=== PATIENT | female | born 1975 | race Caucasian/White ===

== ENCOUNTER 2019-08-23 12:56 | Observation (INO) | payer SELFPAY ==
--- NOTE | 2019-08-21 16:30 | PCM.HP.BLA ---
History and Physical Date of Admission: 08/22/19 Surgical History and Physical Sun Steinberg, a 44 year old female 8 0 0 0 8, presents for LAVH/BS on August 22, 2019 at 2:45. -- Menorrhagia, Submucous Fibroids -- Menorrhagia which began months ago, but worsened last menses. Sun claims it started with menses and has been present intermittantly for months. It occurs with menses. It is located in the vagina. Sun characterizes the quality no pain. Severity is moderate but now worsening. Associated signs and symptoms are Menorrhagia. Associated signs and symptoms are extreme hemorrhage now on Aygestin. Additional comments are: Hemorrhage on vacation Thursday; seen [facility] ER; transfer to [facility]. Additional comments are: u/s at [facility] showed 11 cm uterus and 4 cm submucous fibroid. MEDICATIONS HISTORY: ALLERGIES: No Known Drug Allergies Infections - Chicken pox childhood Illnesses - no serious past illnesses Hospitalizations - Childbirth Review of Systems: GENERAL - Denies fever, or chills SKIN - Denies skin changes EYES - Denies visual changes EARS - Denies difficulty hearing NOSE - Denies nasal congestion or bleeding MOUTH - Denies sore throat or difficulty swallowing NECK - Denies pain or swelling RESPIRATORY - Denies shortness of breath or wheezing CARDIOVASCULAR - Denies palpitations or chest pain GASTROINTESTINAL - Denies nausea, vomiting, diarrhea, constipation GENITOURINARY - Denies dysuria, frequency of urination, incontinence of urine MUSCULOSKELETAL - Denies joint or muscle pain NEUROLOGICAL - Denies localized numbness or weakness PSYCHIATRIC - Denies depression or anxiety ENDOCRINE - Denies heat or cold intolerance, weight loss or gain HEMATO-IMMUNOLOGIC - Denies excesive bleeding with cuts SOCIAL HISTORY: Alcohol Use - denies drinking Smoking - denies smoking Diet - no special diet Exercise - active Employer - Unemployed Illicit Drug Use - denies use of street drugs Sexual Activity - Spouse-Sig Other Name - Atlee Spouse-Sig Other Occupation - [employer] - NONE FAMILY HISTORY: ct MENSTRUAL HISTORY: LMP Known?- Yes Amount/Duration - 5 days, Regularity - Regular, Frequency - monthly days, LMP - 08/02/19 PAST PREGNANCIES: Total Pregnancies - 8; Full Term Pregnancies - 8; Premature - 0; Abortions, Induced - 0; Abortions, Spontaneous - 0; Ectopics - 0; Multiple Births - 0; Living Children - 8 SURGICAL HISTORY: 1. none PHYSICAL EXAM BP- 124/78 Sitting, Left arm, regular cuff Pulse- 74 Regular Weight- 147.87899 lbs Height- 63 inch BMI:26.09 Second BP:126/74 Sitting, Left arm, regular cuff CONSTITUTIONAL - NAD, well nourished, and well developed SKIN - No rash, lesions, or ulcers HEENT - Normocephalic, PERRLA, EOMI NECK - No nodes, no nuchal rigidity and thyroid normal size and texture LYMPH NODES - Palpation of lymph nodes in neck and groins within normal limits LUNGS - CTA x2 without wheezes, crackles or rales CARDIAC - Regular rate and rhythm without rubs, murmurs, or gallops BREAST - No dominant masses, no tenderness, no axillary adenopathy, no nipple discharge, no skin changes ABDOMEN - Without hepatosplenomegaly, distention, masses, rebound, or guarding; normal bowel sounds; no hernias EXTREMITIES - No edema or calf tenderness NEUROLOGICAL - Cranial nerves II-XII grossly intact PSYCHIATRIC - A and O to time, place, person, mood and affect External Genital Vagina - non-tender without lesions Urethra/Urethral Meatus - non-tender Bladder - non-tender Vagina - vaginal forbes are pink and moist without loss of rugae and no evidence of atropy Cervix - without cervical motion tenderness and has normal size and features without evident lesions and cervix protruded to within 3 cm of the vaginal introitus with abdominal push-down Uterus - enlarged uterus 8 wks, wt 125-150 g Adnexa - clear without massess or tenderness ASSESSMENT/PLAN: 1. Menorrhagia and Submucous Leiomyoma Of Uterus Discussed options for treatment including medical and surgical. Pt fearful of catastrophic episode like last weekend occurring again. Given this, will proceed with LAVH/BS. Discussed RBAs and all questions answered.
[2019-08-22] VITALS (10 sets, daily range): BP systolic 85–143; BP diastolic 47–78; PULSE 75–117; RESP 15–22; TEMP 36.6–37; O2SAT 93–100; BMI 26.2
--- NOTE | 2019-08-22 | IMM_PTH ---
PATIENT: FABIO DIOP LOC: MS3 U#:[id number] AGE/SX: 44/F ROOM: MS315 RE08/23/[address]: Dr. Inocencio Sommers MD : 1975 BED: 1 DIS: 08/24/2019 SPEC #: [id number] RECD: 08/24/19 13:33 STATUS: AUTUMN REQ #: [id number] KATHERINE: 08/22/19 00:[address]: Inocencio Sommers DEPT: IMMUNOHISTOCHEMISTRY RECD BY: Bharti Lal ENTERED: 08/24/19 13:35 SP TYPE: IMMUNO OTHR DR: Dr. Inocencio Brumfield MD Tissues: Uterus, NOS Procedures: Aguilar Ret (add) CD31 (add) CEA (add) CK20 (add) CK7 (add) CK8 (add) DESMIN (add) ELEAZAR (add) HBME (add) Vimentin (add) FACTOR VIII (add) Pankeratin (initial) PHYSICIAN & [address] [address] SPECIMEN INFORMATION: Tissue Source: Uterus Clinical Info: Menorrhagia, submucous leiomyoma Specimen Number: [id number] #5 CPT code: 35121, 42675 x11 METHODOLOGY: Deparaffinized sections of prefer/formalin-fixed tissue or PAP/DQ stained slides are incubated with monoclonal/polyclonal antibodies/oligonucleotide probes. Localization is made via biotin free immunoperoxidase method. Appropriate controls are performed and reacted as expected. Results on target cell population are indicated in the following table: RESULTS: ANTIBODY / CLONE RESULT Block 5 AE1-3 (AE1/AE3/PCK26) negative CK7 (OV-TL12/30) negative CK8 (03cgdcP06) negative CK20 (KS20.8) negative Vimentin (V9) negative CD31 (JESUS/70A) negative Factor VIII (R Ag) negative Desmin (CE-R-11) positive HBME1 (HBME-1) negative CALRET (polyclonal) negative ELEAZAR (E29) negative CEA (11-7/TF-3HB-1) negative These tests were developed and their performance characteristics determined by [facility]. They may not have been cleared or approved by the U.S. Food and Drug Administration. The FDA has determined that such clearance or approval is not necessary. The above immunohistochemical/dualISH markers are ordered and reviewed by the Pathologist. INTERPRETATION: Uterus, hysterectomy: Consistent with leiomyoma. AM:luis fernando 08/25/19 Case has been reviewed in consultation with Dr. Salinas who concurs with the above diagnosis. IDC:SJ
[2019-08-22 11:41] LABS: Internal QC Validated? YES +Cl - CLEAR BKGD; Pregnancy, Urine Negative Negative
[2019-08-22] MEDS: Lactated Ringers 1,000 ML 100 ML IV ×2 (11:52→17:15)
[2019-08-22 11:54] LABS: Hematocrit 41.5 % (37-47); Hemoglobin 13.9 g/dL (12.0-15.0); Mean Corp Hgb Conc 33.5 g/dL (32-36); Mean Corpuscular Hgb 31.8 pg (27.0-32.0); Mean Platelet Vol. 9.9 fl (6.2-12.0); Platelet Count 302 K/mm3 (150-450); RBC Distribution Width CV 13.5 % (11.6-14.6); RBC Distribution Width SD 46.9 fl (35.1-43.9); Red Blood Count 4.37 M/mm3 (4.2-5.4); White Blood Count 8.1 K/mm3 (4.4-11.0)
[2019-08-22 12:02] LABS: Prothrombin Time (Protime)PT. 13.2 SECONDS (11.7-14.9)
--- NOTE | 2019-08-22 13:30 | HYST_PTH ---
PATIENT: FABIO DIOP LOC: MS3 U#:[id number] AGE/SX: 44/F ROOM: MS315 RE08/23/[address]: Dr. Inocencio Sommers MD : 1975 BED: 1 DIS: 08/24/2019 SPEC #: [id number] RECD: 08/23/19 08:42 STATUS: AUTUMN REQ #: [id number] KATHERINE: 08/22/19 13:[address]: Inocencio Sommers DEPT: SURGICAL PATHOLOGY RECD BY: Cleveland Chang ENTERED: 08/23/19 10:03 SP TYPE: HYSTERECT OTHR DR: Dr. Inocencio Brumfield MD Tissues: Uterus, NOS Procedures: Surgery Specimen Level V HEADER OPERATION: Laparoscopic-assisted vaginal hysterectomy, bilateral salpingectomy PRE-OP DIAGNOSIS: Menorrhagia and submucous leiomyoma of uterus TISSUE SUBMITTED: Uterus, bilateral fallopian tubes MICROSCOPIC DIAGNOSIS Uterus, hysterectomy: Cervix - nabothian cysts and mild chronic inflammation. Endometrium - secretory endometrium. Myometrium - leiomyomas and adenomyosis. Right and left fallopian tubes - benign paratubal cyst. AM:luis fernando 08/24/19 COMMENT Case has been reviewed in consultation with Dr. Salinas who concurs with the above diagnosis. IDC:SJ MICROSCOPIC DESCRIPTION Slides are reviewed. GROSS DESCRIPTION Received in fixative is one container labeled with the patient's name and designated uterus, bilateral fallopian tubes. The specimen consists of a hysterectomy specimen consisting of uterus in multiple pieces, cervix, bilateral fallopian tubes attached to two different pieces of uterus. The uterus with cervix weighs 406 gm and measures in aggregate 18 x 14 x 6 cm. One of the pieces consistent with cervix with lower uterine segment measures 7 x 4 x 3.5 cm. The ectocervical mucosa is focally congested. The external os is oval in contour. The endocervical canal measures 4.5 cm in length and the endocervical mucosa is arzola, glistening without any mass lesion. The portion of lower uterine segment present in this piece measures up to 1.5 cm in length. The largest piece of uterine measures 7 x 6 x 4 cm. This piece shows portion of the endometrial tissue which is partly denuded and measures <0.1 cm in thickness. Sectioning of the different uterine pieces show nodular masses. The largest nodular mass measures up to 5 cm in diameter. Sections of these masses reveal arzola whorled cut surfaces without areas of hemorrhage, necrosis or cystic degeneration. The uterine wall measures up to 4 cm in thickness. One of the fallopian tubes measure 7.5 cm in length and 0.6 cm in diameter. The fimbrial end is identified. The second fallopian tube measures 7 cm in length and up to 1 cm in diameter. The fimbrial end is identified. A paratubal cyst is noted measuring 2 cm in diameter. It is filled with clear fluid. Sections of both fallopian tubes reveal unremarkable cut surfaces. Pilot Supervisor sections are submitted in 12 cassettes as follows: 1 & 2 - cervix, 3 & 6 - uterine wall including endometrium, 7 - largest nodular mass, 8??second largest nodular mass, 9 & 10 - smaller nodular masses, 11 - one fallopian tube, 12 - second fallopian tube and paratubal cyst. / KAYLIE:luis fernando 08/23/19 TC: 1 CPT: 28397
--- NOTE | 2019-08-22 14:50 | OP.PCM_ITS ---
Report of Operation Date of Procedure: 08/22/19 Pre-Operative Diagnosis: Menorrhagia and Submucous Fibroids Post-Operative Diagnosis: Menorrhagia and Submucous Fibroids Surgery/Procedure Performed:: Laparoscopic Assisted Vaginal Hysterectomy and Bilateral Salpingectomy Description of Surgical Findings:: 15 cm fibroid uterus with normal-appearing fallopian tubes and ovaries. agriculture sales account manager: Carlitos Akins agriculture sales account manager: Lyric Monroe Type of Anesthesia:: General - Endotracheal Anesthesiologist: Estefany Vásquez Specimen's removed: Uterus and bilateral fallopian tubes Drains: Fong to straight drain Estimated Blood Loss (mL): 250 cc Fluids Replaced: Crystalloid Description of Procedure: Surgeon: Inocencio Sommers MD, FACOG Indications: This is a 44-year-old multiparous patient who is been having problems with extremely heavy periods and fibroids were noted on pelvic ultrasound. She has also had problems with blood loss anemia. Conservative measures have not been helpful. Given this the patient desires that we proceed the above procedure. She has been counseled regarding the risk and indications of this procedure including the possibility of bleeding, infection, and injury to surrounding structures such as bowel bladder. All questions were answered. Procedure: Patient was taken to the operating room where after induction of general anesthesia she was placed in the dorsal lithotomy position and prepped and draped in the usual sterile fashion. A Fong catheter was placed. Anterior cervix was grasped with a tenaculum and anterior cervix circumscribed with cautery on a setting of 35 W coagulation. Anterior vaginal mucosa was undermined and a 4 x 4 raytec sponge was placed to identify the peritoneal reflection of the bladder intraperitoneally. Conn cannula was placed and attention was turned towards the laparoscopic portion of the procedure. Approximately 20 cc of half percent ropivacaine was injected subumbilically, suprapubically, and midway between. A 5 mm bladeless trocar was introduced subumbilically and intraperitoneal placement confirmed. CO2 insufflation was completed and, under direct visualization, a 5 mm bladeless trocar was introduced suprapubically. A 5 mm bladeless trocar was introduced midway between these 2 ports. Enseal was used to cauterize the infundibulopelvic ligaments to the level of the round ligament and the Raytec placed in the vagina was visualized. Scissors was used to open the peritoneum and under direct visualization a narrow Honor was placed vaginally; CO2 gas was stopped and attention turned toward the vaginal hysterectomy portion of the procedure. The posterior aspect of the cervix was circumscribed with a knife and posterior peritoneum easily entered. Progressive bites were taken on either side of the uterine cervix and each pedicle ligated with 0 Vicryl suture. About two [address] of the pedicles it was necessary to remove the uterus in pieces and after removing the bulk of the uterus superior pedicles were ligated ?2 with 0 Vicryl suture. Sidewall pedicles were examined and oversewn where necessary with [id number] 0 Vicryl suture to achieve hemostasis. Posterior vaginal cuff was oversewn with running locked 0 Vicryl suture. Hemostasis was noted and peritoneum was closed in a pursestring fashion incorporating superior pedicles into the stitch. Vaginal cuff was then closed front to back with interrupted [id number] 0 Vicryl suture. Hemostasis was noted. Attention was turned toward the laparoscopic portion of the procedure. CO2 insufflation was completed and pedicles were examined and noted to be hemostatic. Pelvis was copiously irrigated and hemostasis was confirmed. Laparoscopic instruments with as much CO2 gas as possible was removed and skin incisions were closed with interrupted 4-0 Monocryl suture. Steri-Strips and OpSite was placed across the incisions. Patient tolerated the procedure well was taken to recovery room in satisfactory condition; sponge instrument and needle counts were all reportedly correct. Estimated blood loss for the case was 250 cc. Cefotan 2 g IV was given prior to beginning the operative procedure. There were no apparent complications of the surgery. Specimen to pathology was uterus and bilateral fallopian tubes. Grafts/Implants Used: None - Admit VTE Documentation VTE Present on Admission: Yes VTE Mechan Device Prophylaxis: SCD's VTE Pharm Prophylaxis ordered?: Yes
--- NOTE | 2019-08-22 14:52 | PCM.DC.VHY ---
Discharge Diet: No Restrictions Discharge Activity: Return to Normal Activity, May Not Drive - while taking narcotic pain medications., May Shower, May Take a Tub Bath May resume sexual activity in: 6-8 weeks Call your doctor if your incision/area has: Continuous Slow Oozing, Sudden Increased Bleeding, Increased Pain/ Swelling, Increased Redness, Foul Smelling Discharge Call your doctor if you observe: Fever of 101 or Higher, Inability to urinate, Inability to have a bowel movement, Using more than one pad per hour Allergies/Adverse Reactions: Allergies No Known Allergies Allergy (Verified 08/22/19 11:23) Medications to take at Discharge Calcium Carbonate [Calcium] 600 mg PO DAILY 08/15/19 Ferrous Sulfate [Iron] 325 mg PO DAILY 08/15/19 Magnesium 200 mg PO DAILY 08/15/19 Multivitamin [Multivitamins] 1 ea PO DAILY 08/15/19 Docusate Sodium [Colace] 100 mg PO BID PRN PRN #60 cap 08/22/19 Oxycodone [Oxyir] 5 mg PO Q6H PRN PRN 7 Days #10 tab 08/22/19 The following prescriptions were given: Docusate Sodium [Colace] 100 mg PO BID PRN PRN #60 cap PRN Reason: Constipation Prescription Printed Oxycodone [Oxyir] 5 mg PO Q6H PRN PRN 7 Days #10 tab PRN Reason: Pain Score 6-10/10 Prescription Printed Orders to be completed after discharge: ,Urine Time Frame: 08/22/19, Facility: [facility], Location: Laboratory Primary Care Physician: Inocencio Brumfield MD [Primary Care Provider] - Test Results: Test results from this visit will be discussed in further detail at your follow-up appointment, if applicable. Please Follow Up With: Inocencio Sommers MD When: 2 to 3 weeks
[2019-08-22] MEDS: Ropivacaine 0.5% 30 ML Vial (15:40)
[2019-08-22] MEDS: Ketorolac 30 MG/ML Syringe IV ×2 (17:30→23:21)
[2019-08-22] MEDS: Dextrose 5%-Lactated Ringers 1,000 ML 150 ML IV (20:41)
[2019-08-22 20:49] LABS: Absolute Lymphocyte Count 0.69 X10^3/uL (0.83-4.51); Absolute Neutrophil Count 15.6 X10^3/uL (2.0-7.7); Basophil# 0.04 X10^3/uL; Basophil% 0.2 % (0-1); Hematocrit 24.5 % (37-47); Hemoglobin 8.1 g/dL (12.0-15.0); Lymphocyte # 0.69 X10^3/ul (4.0); Lymphocyte % 4.1 % (19-41); Mean Corp Hgb Conc 33.1 g/dL (32-36); Mean Corpuscular Hgb 32.3 pg (27.0-32.0); Mean Corpuscular Volume 97.6 fL (81-99); Mean Platelet Vol. 9.8 fl (6.2-12.0); Monocyte# 0.35 X10^3/uL; Monocyte% 2.1 % (0-10); NRBC Flagged by Analyzer 0 % (0-5); Neutrophil # 15.64 X10^3/uL (2.7-7.7); Neutrophil % 92.6 % (47-70); Platelet Count 227 K/mm3 (150-450); RBC Distribution Width CV 13.3 % (11.6-14.6); RBC Distribution Width SD 47.4 fl (35.1-43.9); Red Blood Count 2.51 M/mm3 (4.2-5.4); White Blood Count 16.9 K/mm3 (4.4-11.0)
[2019-08-23] VITALS (14 sets, daily range): BP systolic 95–139; BP diastolic 53–75; PULSE 79–103; RESP 14–22; TEMP 36.8–37.2; O2SAT 94–100
[2019-08-23] MEDS: Dextrose 5%-Lactated Ringers 1,000 ML 150 ML IV ×2 (03:02→17:35)
[2019-08-23] MEDS: Acetaminophen 500 MG Tablet 1000 MG PO (04:10)
--- NOTE | 2019-08-23 04:11 | PCM.PN.OB ---
Subjective: Call to see patient regarding low urine output. Patient has had only about 15 cc an hour overnight. No vaginal bleeding is noted and abdomen is soft, nontender and very slightly distended. Patient denies any pain except in the right lower quadrant with deep palpation. She denies any CVA tenderness or other pain. Actually feeling better after a 500 cc bolus of lactated Ringer. At the time of surgery she lost 250 cc of blood estimated. Anesthesia estimated 100 cc and I was estimating 350 cc so we agreed at 250 cc. Patient denies any nausea or vomiting. - Physical Exam General: Oriented x3, Cooperative, No apparent distress Oral: - - Lips are pale Cardiovascular: Regular rate, Regular Rhythm, - - Tachycardia resolving. Was 117-120 just after surgery now in the 90s Abdomen: Soft, Non Tender, - - No tenderness throughout with some mild right lower quadrant tenderness to deep palpation, no guarding, no rebound Extremities: No clubbing, No cyanosis, No edema Musculoskeletal: - - No CVA tenderness Vital Signs Temp Pulse Resp BP Pulse Ox 98.5 F 96 18 110/68 97 08/23/19 03:00 08/23/19 03:00 08/23/19 03:00 08/23/19 03:00 08/23/19 03:00 Oxygen Flow Rate (L/min) 2 Oxygen Delivery Method Room Air Weight: 148 lb 2.41 oz Body Mass Index (BMI) 26.2 Intake and Output for Last 24 Hours 08/21/19 08/22/19 08/23/19 23:59 23:59 23:59 Intake Total 2836.67 / 2836.67 657.5 / 657.5 Output Total 60 / 60 50 / 50 Balance 2776.67 / 2776.67 607.5 / 607.5 Laboratory Tests Past 24 Hrs 08/22/19 08/22/19 08/22/19 11:30 11:45 11:45 WBC 8.1 RBC 4.37 Hgb 13.9 Hct 41.5 MCV 95.0 MCH 31.8 MCHC 33.5 RDW Std Deviation 46.9 H RDW Coeff of Tony 13.5 Plt Count 302 MPV 9.9 Immature Gran % (Auto) Neut % (Auto) Lymph % (Auto) [place] % (Auto) Eos % (Auto) Baso % (Auto) Absolute Neuts (auto) Absolute Lymphs (auto) Nucleated RBC % PT 13.2 INR 1.0 APTT 26.0 Urine Test Negative Blood Type Antibody Screen 08/22/19 08/22/19 11:45 20:42 WBC 16.9 H RBC 2.51 L Hgb 8.1 L Hct 24.5 L MCV 97.6 MCH 32.3 H MCHC 33.1 RDW Std Deviation 47.4 H RDW Coeff of Tony 13.3 Plt Count 227 MPV 9.8 Immature Gran % (Auto) 1.000 H Neut % (Auto) 92.6 H Lymph % (Auto) 4.1 L [place] % (Auto) 2.1 Eos % (Auto) 0.0 Baso % (Auto) 0.2 Absolute Neuts (auto) 15.6 H Absolute Lymphs (auto) 0.69 L Nucleated RBC % 0 PT INR APTT Urine Test Blood Type O POSITIVE Antibody Screen NEGATIVE Medical Necessity - Tobacco Use Smoking Status: Never smoker Tobacco Use: Non-smoker Assessment/Plan Postoperative day #1 status post LAVH/BS with large uterine fibroids. However, surgery was late in the day yesterday ending at about 5:30 PM. Likely blood loss anemia from underestimated blood loss during surgery is causing low urine output. There does not seem to be any active internal or external bleeding at present as vital signs have stabilized and abdomen is for the most part soft and nondistended and no active vaginal bleeding is noted. We have held her Toradol so she has not received any pain medications for several hours so a small amount of tenderness is not concerning. Vital signs have stabilized after bolus. However, urine output remains moderately low. I have discussed the possibility of needing a blood transfusion with the patient. She and her are agreeable if this is necessary. We have discussed the risk benefits alternatives of blood transfusion. We well await results of morning labs to be drawn now and if appropriate proceed with either a blood transfusion or another fluid bolus.
[2019-08-23 05:14] LABS: Hematocrit 23.9 % (37-47); Hemoglobin 7.9 g/dL (12.0-15.0); Mean Corp Hgb Conc 33.1 g/dL (32-36); Mean Corpuscular Volume 96.8 fL (81-99); Mean Platelet Vol. 10.2 fl (6.2-12.0); Platelet Count 223 K/mm3 (150-450); RBC Distribution Width CV 13.4 % (11.6-14.6); RBC Distribution Width SD 47.4 fl (35.1-43.9); Red Blood Count 2.47 M/mm3 (4.2-5.4); White Blood Count 16.1 K/mm3 (4.4-11.0)
[2019-08-23 05:25] LABS: Creatinine, Serum 1.28 mg/dL (0.55-1.02); EST Glomerular Filtration Rate 48 mL/min (>60); Est Glom Filt Rate - Afr Amer 58 mL/min (>60)
[2019-08-23] MEDS: Ketorolac 30 MG/ML Syringe IV ×2 (06:10→11:47)
--- NOTE | 2019-08-23 06:26 | NURSING ---
patient stood at side of bed, immediately became dizzy so returned back to bed.
--- NOTE | 2019-08-23 08:50 | PN.OBGYN_ITS ---
Subjective: Patient feeling better but does get dizzy when she stands at bedside. Some bloating as noted but abdomen is soft. Some right lower quadrant tenderness and right lower back pain with palpation. Denies any vaginal bleeding. Fong catheter remains in place with urine output increasing at present. - Physical Exam Vital Signs Temp Pulse Resp BP Pulse Ox 98.6 F 103 H 16 119/75 94 08/23/19 06:05 08/23/19 06:05 08/23/19 06:05 08/23/19 06:05 08/23/19 06:05 Oxygen Flow Rate (L/min) 2 Oxygen Delivery Method Room Air Weight: 148 lb 2.41 oz Body Mass Index (BMI) 26.2 Intake and Output for Last 24 Hours 08/21/19 08/22/19 08/23/19 23:59 23:59 23:59 Intake Total 2836.67 / 2836.67 1757.5 / 1757.5 Output Total 60 / 60 95 / 95 Balance 2776.67 / 2776.67 1662.5 / 1662.5 Laboratory Tests Past 24 Hrs 08/22/19 08/22/19 08/22/19 11:30 11:45 11:45 WBC 8.1 RBC 4.37 Hgb 13.9 Hct 41.5 MCV 95.0 MCH 31.8 MCHC 33.5 RDW Std Deviation 46.9 H RDW Coeff of Tony 13.5 Plt Count 302 MPV 9.9 Immature Gran % (Auto) Neut % (Auto) Lymph % (Auto) [place] % (Auto) Eos % (Auto) Baso % (Auto) Absolute Neuts (auto) Absolute Lymphs (auto) Nucleated RBC % PT 13.2 INR 1.0 APTT 26.0 Creatinine Estim Creat Clear Calc Est GFR (MDRD) Af Amer Est GFR (MDRD) Non-Af Urine Test Negative Blood Type Antibody Screen 08/22/19 08/22/19 08/23/19 11:45 20:42 04:45 WBC 16.9 H 16.1 H RBC 2.51 L 2.47 L Hgb 8.1 L 7.9 L Hct 24.5 L 23.9 L MCV 97.6 96.8 MCH 32.3 H 32.0 MCHC 33.1 33.1 RDW Std Deviation 47.4 H 47.4 H RDW Coeff of Tony 13.3 13.4 Plt Count 227 223 MPV 9.8 10.2 Immature Gran % (Auto) 1.000 H Neut % (Auto) 92.6 H Lymph % (Auto) 4.1 L [place] % (Auto) 2.1 Eos % (Auto) 0.0 Baso % (Auto) 0.2 Absolute Neuts (auto) 15.6 H Absolute Lymphs (auto) 0.69 L Nucleated RBC % 0 PT INR APTT Creatinine Estim Creat Clear Calc Est GFR (MDRD) Af Amer Est GFR (MDRD) Non-Af Urine Test Blood Type O POSITIVE Antibody Screen NEGATIVE 08/23/19 04:45 WBC RBC Hgb Hct MCV MCH MCHC RDW Std Deviation RDW Coeff of Tony Plt Count MPV Immature Gran % (Auto) Neut % (Auto) Lymph % (Auto) [place] % (Auto) Eos % (Auto) Baso % (Auto) Absolute Neuts (auto) Absolute Lymphs (auto) Nucleated RBC % PT INR APTT Creatinine 1.28 H Estim Creat Clear Calc 46.40 Est GFR (MDRD) Af Amer 58 L Est GFR (MDRD) Non-Af 48 L Urine Test Blood Type Antibody Screen Wounds are clean, dry, intact. Urine output still marginal to low. Hemoglobin stabilized during the night but creatinine appears mildly elevated elevated. Minimal to no vaginal bleeding noted. Good bowel sounds noted. No CVA tenderness. Medical Necessity - Tobacco Use Smoking Status: Never smoker Tobacco Use: Non-smoker Assessment/Plan Postoperative day #1 status post laparoscopic assisted vaginal hysterectomy and bilateral salpingectomy. Will repeat CBC and creatinine to confirm stable and that creatinine is diminishing. If creatinine still elevated will consider IVP to check patency of the ureter especially on the right. If orthostatic symptoms persist will likely give 2 units of packed red blood cells. Again discussed possible need for transfusion and possible need for Urology involvement. Home- going instructions were discussed.
[2019-08-23 10:16] LABS: Absolute Lymphocyte Count 0.92 X10^3/uL (0.83-4.51); Absolute Neutrophil Count 10.8 X10^3/uL (2.0-7.7); Basophil# 0.01 X10^3/uL; Basophil% 0.1 % (0-1); Hematocrit 20.5 % (37-47); Hemoglobin 6.7 g/dL (12.0-15.0); Lymphocyte # 0.92 X10^3/ul (4.0); Lymphocyte % 7.2 % (19-41); Mean Corp Hgb Conc 32.7 g/dL (32-36); Mean Corpuscular Hgb 32.1 pg (27.0-32.0); Mean Corpuscular Volume 98.1 fL (81-99); Mean Platelet Vol. 10.4 fl (6.2-12.0); Monocyte# 1.04 X10^3/uL; Monocyte% 8.1 % (0-10); NRBC Flagged by Analyzer 0 % (0-5); Neutrophil # 10.75 X10^3/uL (2.7-7.7); Neutrophil % 83.9 % (47-70); Platelet Count 201 K/mm3 (150-450); RBC Distribution Width CV 13.6 % (11.6-14.6); RBC Distribution Width SD 47.6 fl (35.1-43.9); Red Blood Count 2.09 M/mm3 (4.2-5.4); White Blood Count 12.8 K/mm3 (4.4-11.0)
[2019-08-23 10:28] LABS: Creatinine, Serum 1.06 mg/dL (0.55-1.02); EST Glomerular Filtration Rate 60 mL/min (>60); Est Glom Filt Rate - Afr Amer 72 mL/min (>60); Estimated Creatinine Clearance 56.03 ml/min
--- NOTE | 2019-08-23 10:35 | CT_ITS ---
We are attempting to reach an attending provider to discuss findings. An addendum with communication details will be sent when the communication is complete. STUDY: CT ABDOMEN AND PELVIS WITH CONTRAST REASON FOR EXAM: Female, 44 years old. Status post laparoscopic hysterectomy, low urine output RADIATION DOSAGE (If Supplied By Facility): CTDIvol = ( 10.16 ) mGy, DLP = ( 1789.23 ) mGycm TECHNIQUE: Transaxial images were obtained from the dome of the diaphragm to the symphysis pubis without oral contrast. IV Isovue 300 100 was administered. Sagittal and coronal images were reconstructed. Individualized dose optimization techniques were used for this CT. COMPARISON: None. FINDINGS: Tiny bilateral pleural effusions with some bibasilar atelectasis. The visualized portions of the heart are within normal limits. Small amount of free fluid primarily surrounding the liver as well as a few bubbles of pneumoperitoneum consistent with recent pelvic surgery. Normal liver. Normal gallbladder and extrahepatic biliary system. Normal spleen. Normal pancreas. Normal bilateral adrenal glands. Normal right kidney. Normal left kidney. Delayed phase images through the excretory phase demonstrate normal visualization of the ureters bilaterally without evidence of contrast extravasation to suggest ureteral injury. Normal visualized stomach. Normal small intestine. Normal colon. There is non-visualization of the appendix. Normal abdominal aorta. Normal inferior vena cava. Large 8 x 9 x 16 cm right-sided retroperitoneal hematoma anterolateral to the iliopsoas muscle with slight anterior displacement of the right kidney and extending into the pelvis. Fong catheter within the contracted bladder. Normal abdominal wall. Normal osseous structures. CT/Abdomen/Pelvis W IV Cont ONLY IMPRESSION: Acute Large right-sided retroperitoneal hematoma with some anterior displacement of the right kidney but an intact ureter without leak on the delayed excretory phase. Electronically Signed: Nain Tamez MD at 11:45 EDT Tel , Service support ,
[2019-08-23] MEDS: 0.9% NaCl Peripheral Flush Adult/Peds IV ×3 (12:15→17:40)
[2019-08-23 19:33] LABS: Hematocrit 25.3 % (37-47); Hemoglobin 8.4 g/dL (12.0-15.0)
[2019-08-24] MEDS: Dextrose 5%-Lactated Ringers 1,000 ML 150 ML IV ×2 (00:52→07:22)
[2019-08-24] MEDS: Acetaminophen 500 MG Tablet 1000 MG PO ×2 (03:06→12:38)
[2019-08-24 03:10] VITALS: BP 118/68; PULSE 96; RESP 16; TEMP 36.8; O2SAT 97
[2019-08-24 06:45] LABS: Absolute Lymphocyte Count 1.79 X10^3/uL (0.83-4.51); Absolute Neutrophil Count 8.3 X10^3/uL (2.0-7.7); Basophil# 0.03 X10^3/uL; Basophil% 0.3 % (0-1); Eosinophil# 0.03 X10^3/uL; Eosinophils% 0.3 % (0-5); Hematocrit 23.8 % (37-47); Lymphocyte # 1.79 X10^3/ul (4.0); Lymphocyte % 16.4 % (19-41); Mean Corp Hgb Conc 33.6 g/dL (32-36); Mean Corpuscular Volume 95.2 fL (81-99); Mean Platelet Vol. 10.4 fl (6.2-12.0); Monocyte# 0.69 X10^3/uL; Monocyte% 6.3 % (0-10); NRBC Flagged by Analyzer 0 % (0-5); Neutrophil # 8.31 X10^3/uL (2.7-7.7); Platelet Count 164 K/mm3 (150-450); RBC Distribution Width CV 14.5 % (11.6-14.6); RBC Distribution Width SD 49.9 fl (35.1-43.9); White Blood Count 10.9 K/mm3 (4.4-11.0)
[2019-08-24 07:38] VITALS: O2SAT 96
[2019-08-24 09:00] VITALS: BP 125/67; PULSE 86; RESP 16; TEMP 37.1; O2SAT 97
[2019-08-24] MEDS: Docusate Sodium 100 MG Capsule PO (10:09)
--- NOTE | 2019-08-24 13:29 | PCM.PN.OB ---
Subjective: Patient without complaints except for some right sided discomfort especially when she stands and moves around very much. CT scan yesterday morning revealed a large right retroperitoneal hematoma. This appears to be stable as hemoglobin has remained stable and vital signs are stable as well for 24 hours at present. Minimal to no vaginal bleeding is noted. Positive flatus and able to void on own. Tolerating diet. - Physical Exam General: Alert, Oriented x3 Abdomen: Soft, Passing Flatus, - - Very mildly distended and no guarding or rebound noted. Some tenderness to deep palpation on the right. Neurological: Cranial nerves II-XII grossly intact Psych/Mental Status: Normal Affect, Appropriate Vital Signs Temp Pulse Resp BP Pulse Ox 98.8 F 86 16 125/67 H 97 08/24/19 09:00 08/24/19 09:00 08/24/19 09:00 08/24/19 09:00 08/24/19 09:00 Oxygen Flow Rate (L/min) 2 Oxygen Delivery Method Room Air Weight: 155 lb Body Mass Index (BMI) 26.2 Intake and Output for Last 24 Hours 08/22/19 08/23/19 08/24/19 23:59 23:59 23:59 Intake Total 2836.67 / 2836.67 3777.5 / 4577.5 3482.5 / 3482.5 Output Total 60 / 60 645 / 845 1750 / 1750 Balance 2776.67 / 2776.67 3132.5 / 3732.5 1732.5 / 1732.5 Laboratory Tests Past 24 Hrs 08/22/19 08/23/19 08/24/19 11:45 18:58 05:46 WBC 10.9 RBC 2.50 L Hgb 8.4 L 8.0 L Hct 25.3 L 23.8 L MCV 95.2 MCH 32.0 MCHC 33.6 RDW Std Deviation 49.9 H RDW Coeff of Tony 14.5 Plt Count 164 MPV 10.4 Immature Gran % (Auto) 0.700 Neut % (Auto) 76.0 H Lymph % (Auto) 16.4 L [place] % (Auto) 6.3 Eos % (Auto) 0.3 Baso % (Auto) 0.3 Absolute Neuts (auto) 8.3 H Absolute Lymphs (auto) 1.79 Nucleated RBC % 0 Crossmatch See Detail Medical Necessity - Tobacco Use Smoking Status: Never smoker Tobacco Use: Non-smoker Assessment/Plan Doing well postoperative day #2 status post laparoscopic assisted vaginal hysterectomy and bilateral salpingectomy status post right retroperitoneal hematoma. Patient has received 2 units of packed red blood cells and hemoglobin has remained stable for 24 hours. Minimal orthostatic changes. White count has normalized. I have discussed this case at length with Dr. Otis Toledo who is a gynecologic oncologist at [facility] in [place]. Surgical intervention would only be indicated if the hematoma was increasing in size, severe abdominal pain develops, or the hematoma becomes infected. He is not recommending starting antibiotic at this time to prevent an infected hematoma. Dr. Calix indicates that usually after 24 to 48 hours the patient can be sent home with minimal risk. No activity restrictions other than the usual after hysterectomy which would be no heavy lifting and nothing in the vagina for 6 weeks. We expect discomfort from this hematoma to slowly resolve over 2 to 4 weeks. She will need to call if she has markedly increasing pain or fevers. Plan to repeat CBC and creatinine to confirm this is stable and will release home this evening or tomorrow morning.
[2019-08-24 13:55] VITALS: BP 123/73; PULSE 106; RESP 16; TEMP 37.1; O2SAT 100
[2019-08-24 18:01] LABS: Absolute Lymphocyte Count 1.91 X10^3/uL (0.83-4.51); Absolute Neutrophil Count 7.6 X10^3/uL (2.0-7.7); Basophil# 0.05 X10^3/uL; Basophil% 0.5 % (0-1); Eosinophil# 0.09 X10^3/uL; Eosinophils% 0.9 % (0-5); Hematocrit 23.4 % (37-47); Hemoglobin 7.9 g/dL (12.0-15.0); Lymphocyte # 1.91 X10^3/ul (4.0); Lymphocyte % 18.3 % (19-41); Mean Corp Hgb Conc 33.8 g/dL (32-36); Mean Corpuscular Hgb 32.2 pg (27.0-32.0); Mean Corpuscular Volume 95.5 fL (81-99); Monocyte# 0.72 X10^3/uL; Monocyte% 6.9 % (0-10); NRBC Flagged by Analyzer 0.2 % (0-5); Neutrophil # 7.58 X10^3/uL (2.7-7.7); Neutrophil % 72.7 % (47-70); Platelet Count 165 K/mm3 (150-450); RBC Distribution Width CV 14.4 % (11.6-14.6); RBC Distribution Width SD 49.5 fl (35.1-43.9); Red Blood Count 2.45 M/mm3 (4.2-5.4); White Blood Count 10.4 K/mm3 (4.4-11.0)
[2019-08-24 18:14] LABS: Albumin, Serum 2.5 g/dL (3.2-5.0); BUN 4 mg/dL (7-18); BUN/Creat Ratio 6.4 RATIO (10-20); Calcium,Total 7.9 mg/dL (8.5-10.1); Chloride 110 mmol/L (98-107); Creatinine, Serum 0.63 mg/dL (0.55-1.02); EST Glomerular Filtration Rate 109 mL/min (>60); Est Glom Filt Rate - Afr Amer 132 mL/min (>60); Estimated Creatinine Clearance 94.26 ml/min; Glucose 87 mg/dL (74-106); Phosphorus 2.3 mg/dL (2.5-4.9); Potassium 3.7 mmol/L (3.5-5.1); Sodium Level 141 mmol/L (136-145)
[2019-08-24 18:50] VITALS: BP 122/75; PULSE 107; RESP 16; TEMP 36.7; O2SAT 96
--- NOTE | 2019-08-24 18:51 | DS.PCM_ITS ---
Discharge Summary Date of Admission: 08/22/19 Date of Discharge: 08/24/19 Summary: Admission Diagnosis: Menorrhagia and Uterine Fibroids Discharge Diagnosis: Menorrhagia and Urine Fibroids, Right Retroperitoneal Hematoma, Blood Loss Anemia Procedure: Laparoscopic Assisted Vaginal Hysterectomy and Bilateral Salpingectomy HPI: This is a 44-year-old patient who presents for the above procedure for extremely heavy menses. Ultrasound showed approximately 13 to 14 cm size uterus and it is felt that she is an appropriate candidate for lap assisted vaginal hysterectomy and bilateral salpingectomy. PE: Unremarkable. Hospital Course: The patient is a 44 year old who presented for the above surgery and diagnostic reason. She subsequently had a arthroscopic assisted vaginal hysterectomy and bilateral salpingectomy on August 22.. Postoperatively the patient had low urine output in the evening and night after her surgery. Her urine output was initially 15 cc an hour. Initially we felt that we had underestimated blood loss during surgery. Patient had a small amount of right lower quadrant pain and it was some concern there may have also been compromised to the right ureter. Given this a CAT scan was done which showed a patent right ureter but a right retroperitoneal hematoma was noted. Patient's hemoglobin dropped into the sixes and 2 units of packed red bulls blood cells were given. Vital stabilized approximately 10 hours after her surgery and blood counts remained stable at approximately 8.0 hemoglobin until the end of postoperative day #2. Creatinine was also initially elevated but stabilized and a normal value by the end of postoperative day #2. Patient also began diuresis and was actually feeling a bit better with minimal right lower quadrant pain noted. The case was discussed with [employer] who felt that the patient could be discharged safely after 1 to 2 days of the observation if hemoglobin remained stable and there was no evidence of infection. I discussed this at length with patient and multiple family members and the need for surgical intervention should she have excruciating increasing pain, evidence of enlarging hematoma, or infection in the hematoma. Patient is to call with severely increasing pain or fevers. It should be noted that the patient's white count has diminished to the normal range since her initial postop CBC. Homegoing Instruction: She was instructed not to put anything in the vagina for 6 weeks, not to lift >25 lbs for 6 weeks and to call the office for an appointment in 1 weeks and 6 weeks. She was also instructed to call with markedly increasing pain or any fever higher than 101 ?F. Discharge Medications: She was given a prescription for Oxycodone and Colace and also plans to use Aleve or Motrin or Tylenol at home as needed for pain and constipation. - Physical Exam Vital Signs Temp Pulse Resp BP Pulse Ox 98.7 F 106 H 16 123/73 H 100 08/24/19 13:55 08/24/19 13:55 08/24/19 13:55 08/24/19 13:55 08/24/19 13:55 Oxygen Flow Rate (L/min) 2 Oxygen Delivery Method Room Air Weight: 155 lb Body Mass Index (BMI) 26.2 Intake and Output for Last 24 Hours 08/22/19 08/23/19 08/24/19 23:59 23:59 23:59 Intake Total 2836.67 / 2836.67 3777.5 / 4577.5 5482.5 / 5482.5 Output Total 60 / 60 645 / 845 2850 / 2850 Balance 2776.67 / 2776.67 3132.5 / 3732.5 2632.5 / 2632.5 Laboratory Tests Past 24 Hrs 08/23/19 08/24/19 08/24/19 18:58 05:46 17:54 WBC 10.9 10.4 RBC 2.50 L 2.45 L Hgb 8.4 L 8.0 L 7.9 L Hct 25.3 L 23.8 L 23.4 L MCV 95.2 95.5 MCH 32.0 32.2 H MCHC 33.6 33.8 RDW Std Deviation 49.9 H 49.5 H RDW Coeff of Tony 14.5 14.4 Plt Count 164 165 MPV 10.4 10.0 Immature Gran % (Auto) 0.700 0.700 Neut % (Auto) 76.0 H 72.7 H Lymph % (Auto) 16.4 L 18.3 L [place] % (Auto) 6.3 6.9 Eos % (Auto) 0.3 0.9 Baso % (Auto) 0.3 0.5 Absolute Neuts (auto) 8.3 H 7.6 Absolute Lymphs (auto) 1.79 1.91 Nucleated RBC % 0 0.2 Sodium Potassium Chloride Carbon Dioxide BUN Creatinine Estim Creat Clear Calc Est GFR (MDRD) Af Amer Est GFR (MDRD) Non-Af BUN/Creatinine Ratio Glucose Calcium Phosphorus Albumin 10/16/19 17:54 WBC RBC Hgb Hct MCV MCH MCHC RDW Std Deviation RDW Coeff of Tony Plt Count MPV Immature Gran % (Auto) Neut % (Auto) Lymph % (Auto) [place] % (Auto) Eos % (Auto) Baso % (Auto) Absolute Neuts (auto) Absolute Lymphs (auto) Nucleated RBC % Sodium 141 Potassium 3.7 Chloride 110 H Carbon Dioxide 27.0 BUN 4 L Creatinine 0.63 Estim Creat Clear Calc 94.26 Est GFR (MDRD) Af Amer 132 Est GFR (MDRD) Non-Af 109 BUN/Creatinine Ratio 6.4 L Glucose 87 Calcium 7.9 L Phosphorus 2.3 L Albumin 2.5 L
--- NOTE | 2019-08-24 19:21 | NURSING ---
1850- DR DAVIS IN TO DC PT. HGB STABLE AT 7.9 AT THIS TIME.
== END 2019-08-24 19:18 | disposition home or self-care (01) ==
LOC: SDC 13:00 → MS3 13:00
PROVIDERS: Admitting Provider Obstetrics & Gynecology; Family Provider Family Medicine; PCP Family Medicine; Referring Provider Obstetrics & Gynecology; Visit Provider Obstetrics & Gynecology
PROC: 0UT9FZZ Resection of Uterus, Via Natural or Artificial Opening With Percutaneous Endoscopic Assistance (ICD-10-PCS; CPT 58552; principal; 2019-08-22 13:05)
DX: D25.0 Submucous leiomyoma of uterus (principal); D50.0 Iron deficiency anemia secondary to blood loss (chronic); K66.1 Hemoperitoneum; N88.8 Other specified noninflammatory disorders of cervix uteri; N83.8 Other noninflammatory disorders of ovary, fallopian tube and broad ligament; Z79.899 Other long term (current) drug therapy
CPT/HCPCS: 00940; 58552; 36415; 36430; 74177; 80069; 81025; 82565; 85014; 85018; 85025; 85027; 85610; 85730; 86850; 86900; 86901; 86920; 88307; 88341; 88342; 96361; 96365; 96366; 96375; 96376; 99218; J7040; J7120; P9016; Q9967; A4216; G0378; G0379; J2405